=== PATIENT | female | born 1990 | race Hispanic/Latino ===

== ENCOUNTER 2021-10-12 13:24 | Inpatient (IN) | payer OTHER, BC ==
[2021-10-12 14:49] LABS: #Basophils 0.1 thou/uL (0.0-0.2); #Eosinphils 0.1 thou/uL (0.0-0.7); #Lymphocytes 2.1 thou/uL (1.20-3.40); #Neutrophils 11.2 thou/uL (1.40-6.50); %Basophils 0.8 % (0.0-1.0); %Eosinophils 0.5 % (0.0-10.0); %Lymphocytes 14.6 % (21.0-51.0); %Monocytes 6.7 % (0.0-10.0); %Neutrophils 77.4 % (42.0-75.0); Hemoglobin 15.8 g/dL (12.0-16.0); Mean Corpuscular HGB CONC 33.7 g/dL (32.0-36.0); Mean Corpuscular Hemoglobin 32.3 pg (27.0-31.0); Mean Platelet Volume 9.6 fL (7.4-10.4); Platelet Count 197 thou/uL (130-400); RBC Distribution Width 11.7 % (11.5-14.5); White Blood Cell (WBC) Count 14.5 thou/uL (4.8-10.8)
[2021-10-12 15:04] LABS: BHCG - Serum Negative (NEGATIVE); Pregs Control Background? CLEAR/WHITE (CLR/WHITE); Pregs Control Bar Appear? YES (CONTROL BAR)
[2021-10-12] MEDS ORDERED: PROPOFOL 20 ML ONE (15:12)
[2021-10-12 15:14] LABS: ALT (SGPT) 17 U/L (8-55); AST (SGOT) 14 U/L (5-34); Albumin 4.3 g/dL (3.5-5.0); Alkaline Phosphatase 52 U/L (40-110); Anion Gap 14 mmol/L (10-20); BUN (Urea Nitrogen) 15 mg/dL (7.0-18.7); Bilirubin, Total 0.5 mg/dL (0.2-1.2); Calc. Creatinine Clearance 0 mL/min (70-130); Calcium 9.2 mg/dL (7.8-10.44); Carbon Dioxide 25 mmol/L (22-29); Chloride 106 mmol/L (98-107); Estimated GFR 90; Globulin 3.2 g/dL (2.4-3.5); Glucose 133 mg/dL (70-105); Lipase 17 U/L (8-78); Potassium 3.8 mmol/L (3.5-5.1); Protein, Total 7.5 g/dL (6.0-8.3); Sodium 141 mmol/L (136-145)
[2021-10-12] MEDS ORDERED: Ondansetron PF 4 MG/2 ML Vial ONE (15:25)
[2021-10-12] MEDS ORDERED: Morphine 4 MG/ML VIAL ONE (17:01)
[2021-10-12] MEDS ORDERED: Dextrose 5% in Water 1,000 ML IV PRN (18:34)
[2021-10-12] MEDS ORDERED: Ondansetron ODT 4 MG TAB PO PRN (18:34)
[2021-10-12] MEDS ORDERED: Dextrose 50% Abboject 50 ML SYRINGE SLOW IVP PRN (18:34)
[2021-10-12] MEDS ORDERED: Ondansetron PF 4 MG/2 ML Vial IVP PRN (18:34)
[2021-10-12] MEDS ORDERED: traMADol HCl 50 MG TAB PO PRN (18:37)
[2021-10-12] MEDS ORDERED: Morphine 2 MG/ML VIAL SLOW IVP PRN (18:46)
[2021-10-12] MEDS ORDERED: Metoprolol Tartrate 5 MG/5 ML VIAL IVP PRN (18:53)
[2021-10-12 20:31] LABS: SARS-CoV-2 NAA Rapid Test Not Detected (NotDetected)
[2021-10-12 20:42] VITALS: BMI 50.4
[2021-10-12] MEDS: Ibuprofen 200 MG TAB PO SCH (20:54)
[2021-10-12] MEDS: traMADol HCl 50 MG TAB PO SCH (20:55)
[2021-10-12] MEDS: Gabapentin 300 MG CAP PO SCH (20:55)
[2021-10-12] MEDS: Acetaminophen 500 MG TAB PO SCH (20:55)
[2021-10-12] MEDS ORDERED: Boostrix 0.5 ML (Tdap) VIAL IM ONE (22:00)
[2021-10-12] MEDS: Famotidine 20 MG TAB PO SCH (22:42)
[2021-10-12] MEDS ORDERED: Lactated Ringer's 1,000 ML IV SCH (23:55)
[2021-10-13] MEDS: traMADol HCl 50 MG TAB PO SCH ×4 (01:59→19:54)
[2021-10-13] MEDS: Acetaminophen 500 MG TAB PO SCH ×4 (02:00→19:53)
[2021-10-13] MEDS: Ibuprofen 200 MG TAB PO SCH ×4 (02:00→19:54)
[2021-10-13] MEDS: Famotidine 20 MG TAB PO SCH ×2 (08:30→19:55)
[2021-10-13] MEDS: Gabapentin 300 MG CAP PO SCH ×2 (08:30→19:55)
[2021-10-13] MEDS ORDERED: ceFAZolin 2 GM/Dextrose 50 ML 2 GM in Premix Bag 1 BAG IVPB SCH (08:30)
[2021-10-13] MEDS ORDERED: CEFAZOLIN 2 GM in Sodium Chloride 0.9% 100 ML IVPB SCH (08:30)
[2021-10-13 16:15] LABS: Bacteria/HPF 2+ HPF (None Seen); Bilirubin Negative (Negative); Blood, Urine Negative (Negative); Clarity Clear (Clear); Glucose, Urine (Dipstick) Normal (Negative); Ketone, Urine Negative (Negative); Leukocyte 500 Leu/uL (Negative); Nitrite Negative (Negative); Protein, Urine (Dipstick) 10 mg/dL (Neg-Trace); RBC/HPF 0-3 HPF (0-3); Specific Gravity, Urine 1.038 (1.002-1.036); Urobilinogen Normal mg/dL (Less than 2); WBC/HPF 21-50 HPF (0-3)
[2021-10-14] MEDS: Ibuprofen 200 MG TAB PO SCH ×4 (03:08→21:38)
[2021-10-14] MEDS: traMADol HCl 50 MG TAB PO SCH ×4 (03:09→21:40)
[2021-10-14] MEDS: Acetaminophen 500 MG TAB PO SCH ×4 (03:09→21:39)
[2021-10-14] MEDS ORDERED: Bupivacaine PF 0.5% 30 ML VIAL ONE (06:10)
[2021-10-14] MEDS ORDERED: Thrombin 5000 UNITS/5 ML VIAL ONE (06:11)
[2021-10-14] MEDS ORDERED: Neomycin-Polymyxin 1 ML AMP ONE (06:11)
[2021-10-14] MEDS ORDERED: Bacitracin Zinc Ointment 30 gm TUBE ONE (06:11)
[2021-10-14] MEDS ORDERED: Midazolam HCl 2 mg/2 ml Vial ONE (06:28)
[2021-10-14] MEDS ORDERED: fentaNYL Citrate/PF 100 MCG/2 ML SYRINGE ONE (06:29)
[2021-10-14] MEDS ORDERED: Sodium Chloride 0.9% 100 ML ONE (07:02)
[2021-10-14] MEDS ORDERED: CEFAZOLIN 2 GM VIAL ONE (07:02)
[2021-10-14] MEDS ORDERED: Dexmedetomidine 200 MCG/2 ML VIAL ONE (07:14)
[2021-10-14] MEDS ORDERED: PROPOFOL 200 MG/20 ML VIAL ONE (07:15)
[2021-10-14] MEDS ORDERED: Ketorolac Tromethamine 30 MG/ML VIAL ONE (07:15)
[2021-10-14] MEDS ORDERED: Bupivacaine HCl 0.5%/Epinephrine 1:200,000/PF 30 ml Vial ONE (07:15)
[2021-10-14] MEDS ORDERED: Dexamethasone 20 MG/5 ML VIAL ONE (07:15)
[2021-10-14] MEDS ORDERED: Lidocaine 1% PF 5 ML VIAL ONE (07:15)
[2021-10-14] MEDS ORDERED: Ondansetron PF 4 MG/2 ML Vial ONE (07:15)
[2021-10-14] MEDS: Famotidine 20 MG TAB PO SCH ×2 (09:00→21:41)
[2021-10-14] MEDS: Gabapentin 300 MG CAP PO SCH ×2 (09:00→21:39)
[2021-10-14] MEDS ORDERED: HYDROmorphone 2 MG/ML VIAL SLOW IVP PRN (10:30)
[2021-10-14] MEDS ORDERED: Promethazine HCl 25 MG/ML VIAL IVPB PRN (10:30)
[2021-10-14] MEDS ORDERED: Promethazine HCl 25 MG/ML VIAL IM PRN (10:30)
[2021-10-14] MEDS ORDERED: Ondansetron HCl/PF 4 MG/2 ML Vial IVP PRN (10:30)
[2021-10-14] MEDS ORDERED: Morphine 4 MG/ML VIAL SLOW IVP PRN (11:47)
[2021-10-15] MEDS: Acetaminophen 500 MG TAB PO SCH ×2 (04:04→09:33)
[2021-10-15] MEDS: traMADol HCl 50 MG TAB PO SCH ×2 (04:05→09:32)
[2021-10-15] MEDS: Ibuprofen 200 MG TAB PO SCH ×2 (04:05→09:32)
[2021-10-15 08:12] VITALS: BP 118/78; TEMP 97.7
[2021-10-15] MEDS: Gabapentin 300 MG CAP PO SCH (09:26)
[2021-10-15] MEDS: Famotidine 20 MG TAB PO SCH (09:33)
== END 2021-10-15 11:48 | disposition home or self-care (01) | DRG 511 ==
LOC: ERS 13:24 → SURG A 18:40 → OBSVTOIN 10-13 13:30
PROVIDERS: ADMIT Surgery; ATTEND Surgery
PROC: 0PSHXZZ Reposition Right Radius, External Approach (ICD-10-PCS; 2021-10-12)
PROC: 0PSH04Z Reposition Right Radius with Internal Fixation Device, Open Approach (ICD-10-PCS; principal; 2021-10-14)
PROC: 0PSK04Z Reposition Right Ulna with Internal Fixation Device, Open Approach (ICD-10-PCS; 2021-10-14)
PROC: 0JQJ0ZZ Repair Right Hand Subcutaneous Tissue and Fascia, Open Approach (ICD-10-PCS; 2021-10-14)
DX: S52.351A Displaced comminuted fracture of shaft of radius, right arm, initial encounter for closed fracture (principal); Z68.43 Body mass index [BMI] 50.0-59.9, adult; Z23 Encounter for immunization; Z20.822 Contact with and (suspected) exposure to COVID-19; S52.611A Displaced fracture of right ulna styloid process, initial encounter for closed fracture; S61.212A Laceration without foreign body of right middle finger without damage to nail, initial encounter; I10 Essential (primary) hypertension; E66.9 Obesity, unspecified; V43.52XA Car driver injured in collision with other type car in traffic accident, initial encounter; Y92.410 Unspecified street and highway as the place of occurrence of the external cause
CPT/HCPCS: 25605; 36415; 71045; 76000; 80053; 81003; 81015; 83690; 84703; 85025; 90715; 96374; 96375; 99155; 99157; C1713; C1776; C1894; G0378; G0390; J0690; J1100; J1885; J2250; J2270; J2405; J2704; J3490; J7120; S0020